=== PATIENT | male | born 1990 | race Hispanic/Latino ===

== ENCOUNTER 2018-02-25 12:00 | Emergency (ER) | payer OTHER, SELFPAY ==
[2018-02-25 12:03] VITALS: BP 141/82; PULSE 66; RESP 18; TEMP 36.8; O2SAT 100; BMI 31.9
--- NOTE | 2018-02-25 12:32 | ED.DIZZY ---
HPI - Dizziness <CRISTOBAL Herbert - Last Filed: 02/25/18 20:56> General Chief Complaint: Dizziness Stated Complaint: 'dizzy,vision shifting' Time Seen by Provider: 02/25/18 12:37 History of Present Illness HPI Narrative: 27-year-old male here for complaint of having dizziness/vertigo that started yesterday. He reports that he was playing with his dogs when he started having feelings of dizziness and where the room started spitting with some nausea. He reported laying down and the symptoms resolved. However he states that when he sits up in turns his head he gets sensation again. He reports whenhe is not moving his head or lying still that the symptoms resolved. He denies any headaches. No fevers no chills she denies having any cold-like symptoms or nasal congestion. No ear pain. He denies any prior history of the symptoms MD complaint: dizziness Related Data Previous Rx's Medication Instructions Recorded meclizine 50 mg PO BID PRN #20 tab 02/25/18 Allergies Allergy/AdvReac Type Severity Reaction Status Date / Time aspirin Allergy Mild Hives Verified 02/25/18 12:06 Review of Systems <CRISTOBAL Herbert - Last Filed: 02/25/18 20:56> Constitutional Denies chills, Denies fever(s), Denies lethargy and Denies weakness Eyes Denies change in vision, Denies eye discharge, Denies irritation and Denies loss of vision ENT Ears, Nose, Mouth, and Throat: Reports vertigo Cardiovascular Denies chest pain, Denies irregular heart rhythm, Denies lightheadedness, Denies palpitations, Denies dyspnea, Denies dyspnea on exertion and Denies orthopnea Respiratory Denies cough, Denies dyspnea, Denies dyspnea on exertion and Denies wheezing Gastrointestinal Gastrointestinal: Denies abdominal pain, Denies change in bowel habits, Denies diarrhea, Denies nausea and Denies vomiting Genitourinary Denies hematuria, Denies flank pain, Denies urinary incontinence and Denies urinary urgency Musculoskeletal Denies back pain, Denies muscle weakness, Denies numbness and Denies tingling Integumentary/Breasts Denies pruritus, Denies erythema, Denies rash and Denies wounds Neurologic Denies confusion, Reports vertigo, Denies loss of vision, Denies numbness, Denies tingling and Denies weakness Psychiatric Denies anxiety, Denies confusion, Denies depression, Denies homicidal ideation and Denies suicidal ideation Endocrine Denies palpitations Allergic/Immunologic Denies wheezing Exam <CRISTOBAL Herbert - Last Filed: 02/25/18 20:56> Initial Vital Signs Initial Vital Signs: Vital Signs Temperature 98.3 F 02/25/18 12:03 Pulse Rate 66 02/25/18 12:03 Respiratory Rate 18 02/25/18 12:03 Blood Pressure 141/82 H 02/25/18 12:03 Pulse Oximetry 100 02/25/18 12:03 Const General: cooperative and well developed Nutritional Appearance: well nourished Orientation: alert, awake, oriented x3 and not confused HENMT Ears: external ears normal and TM's normal bilaterally Eyes General: appearance normal, both eyes and all related structures Conjunctivae: conjunctivae normal Sclera: sclerae normal Pupils: PERRL EOM: EOM intact bilaterally and No nystagmus Neck Neck: normal visual inspection, trachea midline, No lymphadenopathy, No midline deformity and No JVD Lymphatic: No lymphedema Resp Effort & Inspection: normal respiratory effort, able to speak in complete sentences, no respiratory distress and no use of accessory muscles Auscultation: clear to auscultation bilaterally, no rales, no rhonchi and no wheezes Cardio Rate: regular rate Rhythm: regular rhythm Heart Sounds: no click, no gallops, no murmurs and no rubs Skin General: no rashes or lesions noted, No jaundice and No petechiae Neuro Cranial Nerves: No nystagmus <Oc Nichols DO - Last Filed: 02/26/18 07:09> Initial Vital Signs Initial Vital Signs: Vital Signs Temperature 98.3 F 02/25/18 12:03 Pulse Rate 66 02/25/18 12:03 Respiratory Rate 18 02/25/18 12:03 Blood Pressure 141/82 H 02/25/18 12:03 Pulse Oximetry 100 02/25/18 12:03 Course <CRISTOBAL Herbert - Last Filed: 02/25/18 20:56> Orders Ordered: Discontinued Medications Meclizine HCl (Antivert) 50 mg PO NOW ONE Stop: 02/25/18 13:04 Last Admin: 02/25/18 13:08 Dose: 50 mg Vital Signs - 8 hr 02/25/18 14:07 Pulse Rate 66 Respiratory Rate 15 Blood Pressure [Right Arm] 123/79 H Pulse Oximetry 98 <Oc Nichols DO - Last Filed: 02/26/18 07:09> Orders Ordered: Discontinued Medications Meclizine HCl (Antivert) 50 mg PO NOW ONE Stop: 02/25/18 13:04 Last Admin: 02/25/18 13:08 Dose: 50 mg Vital Signs - 8 hr 02/25/18 14:07 Pulse Rate 66 Respiratory Rate 15 Blood Pressure [Right Arm] 123/79 H Pulse Oximetry 98 MDM - Dizziness <CRISTOBAL Herbert - Last Filed: 02/25/18 20:56> MDM Narrative Medical decision making narrative: Patient's symptoms are limited to when movement of the head indicating inner ear abnormality causing the symptoms. Modified Nanci maneuvers were performed in the emergency room in did not relieve symptoms. He is prescribed meclizine. He is instructed to follow up with primary care provider in the next couple of days for re-evaluation. For any worsening symptoms return to the emergency room. He is provided with illustrate shins to perform Nanci maneuvers at home Discharge Plan Departure Patient Disposition: Home, Self-Care Clinical Impression: BPPV (benign paroxysmal positional vertigo) Discharge Date/Time: 02/25/18 14:11 Interventions: ED Discharge Assessment Last Done: 02/25/18 14:10 Instructions: DI for Benign Paroxysmal Positional Vertigo Activity Restrictions/Additional Instructions: Signs and symptoms presents as benign paroxysmal positional vertigo. You have been prescribed meclizine to help with symptoms use as directed. Use the Nanci maneuvers couple times a day see if it will help with symptoms as well. follow up with primary care provider in the next couple of days for re-evaluation. No driving or operating machinery until symptoms resolve. For any worsening symptoms return to the emergency room. Prescriptions: New meclizine 25 mg tablet 50 mg PO BID PRN (Reason: vertigo) Qty: 20 RF: 0 Referrals: [facility] [Provider Group]
[2018-02-25] MEDS: MECLIZINE HCL 12.5 MG TABLET 50 MG PO (13:08)
[2018-02-25 14:07] VITALS: BP 123/79; PULSE 66; RESP 15; O2SAT 98
== END 2018-02-25 14:11 | disposition home or self-care (01) ==
PROVIDERS: Emergency Provider Nurse Practitioner Family
DX: H81.10 Benign paroxysmal vertigo, unspecified ear (principal)
CPT/HCPCS: 99282

== ENCOUNTER 2018-10-25 09:58 | Day surgery (SDC) | payer OTHER, SELFPAY ==
[2018-10-23 09:41] VITALS: BMI 35.1
[2018-10-25] VITALS (9 sets, daily range): BP systolic 98–116; BP diastolic 49–66; PULSE 53–81; RESP 13–20; TEMP 36.3–36.9; O2SAT 95–100; BMI 35.1
[2018-10-25] MEDS: LACTATED RINGERS 1,000 ML 42 ML IV (15:15)
--- NOTE | 2018-10-25 16:48 | PM.PREOP ---
Pre-operative Note Interval Note History & Physical reviewed/Exam performed by Physician: Yes Changes to H&P: No
[2018-10-25] MEDS: CEFAZOLIN 2 GM/100 ML FROZ.PIGGY IV (16:50)
--- NOTE | 2018-10-25 17:06 | SUR.OPER ---
Supine on padded OR bed, head on pillow, arms secured on padded arm boards at <90 degrees abduction, legs uncrossed, safety belt at thigh, tape over blanket over lower legs.
[2018-10-25] MEDS: BUPIVACAINE 0.5% W/ EPI (PF) VIAL 10 ML INJ (17:13)
[2018-10-25] MEDS: LIDOCAINE 1% 30 ML INJ INJ (17:14)
[2018-10-25] MEDS: LACTATED RINGERS 1,000 ML 100 ML IV (17:40)
--- NOTE | 2018-10-25 17:51 | PM.OP.1 ---
Operative Date/Time/Diagnoses Date of procedure: 10/25/18 Time of procedure: 17:51 Pre-op diagnosis: Reducible right inguinal hernia Post-op diagnosis: same (Direct) Procedure & Clinicians Procedure: Repair of hernia with plug and patch technique Same procedure as scheduled: Yes Indications: Symptomatic hernia Surgeon: Morgan Ling Click Yes if Unassisted: Yes Anesthesia Type: General Operative Notes Findings: Small direct sac with a so called lipoma of the cord Closure Type: primary Specimen(s): none sent Prosthetic devices, grafts, tissues, transplants, or devices: Mesh Procedure in detail: The patient was placed supine on the operating room table and underwent general LMA anesthesia. He was prepped and draped in the usual fashion. A transverse incision was made overlying the internal ring and carried down to the level of the external oblique. The external oblique was opened parallel with its fibers through the external ring. The cord structures were elevated. The cremaster was opened proximally and search made for an indirect sac. There was a lipoma of the cord that was from surrounding structures and ligated the level of the deep epigastric vessels. Distal portion was removed there was a small sac that turned out to be a direct hernia sac at the base of the cord. This was opened and the fat within it reduced. A small plug was placed in the defect and it was tacked into place with interrupted Ethibond. The sac was then closed over it along with the cremaster.. The floor was examined and was found to be otherwise intact. A patch was placed across the floor and tacked at the pubic tubercle, the posterior lamella of the anterior rectus sheath, the ilioinguinal ligament, and superior lateral to the cord. The opening was modified as necessary to prevent tight constriction of the cord. Sutures of 0 Tycron were used to secure the mesh. The external oblique was closed with a running 3 0 Vicryl. The subcu was closed with interrupted 3 0 Vicryl. The skin was closed with a running 4 0 Vicryl subcuticular stitch and Steri-Strips. Dressing was applied, the patient was awakened, and the patient was taken to the recovery area in good condition.
[2018-10-25] MEDS: ONDANSETRON 4 MG/2 ML INJ IV (17:55)
[2018-10-25] MEDS: METOCLOPRAMIDE 10 MG/2 ML INJ IV (18:05)
[2018-10-25] MEDS: DEXAMETHASONE 10 MG/ML VIAL IV (18:07)
--- NOTE | 2018-10-25 18:12 | SUR.PHASEI ---
Pt nauseated, vomited clear secretions, medicated with ondansetrn, dexamethasone and reglan per dr jordan. pt denies pain
--- NOTE | 2018-10-25 18:27 | SUR.PHASEI ---
Nausea better, no pain to opd.
--- NOTE | 2018-10-25 19:40 | SUR.PHASEII ---
brought in d/c instructions discussed,. both voiced an understanding, pt dressed when ready and left in stable condition. No further nausea.
== END 2018-10-25 18:55 | disposition home or self-care (01) ==
PROVIDERS: Visit Provider Specialist
PROC: (CPT 49505; principal; 2018-10-25 15:45)
DX: K40.90 Unilateral inguinal hernia, without obstruction or gangrene, not specified as recurrent (principal); I10 Essential (primary) hypertension
CPT/HCPCS: 49505; C1781; J0690; J1100; J2405; J2704; J2765; J3010